=== PATIENT | male | born 1990 | race Caucasian/White ===

== ENCOUNTER 2020-02-07 22:23 | Emergency (ER) | payer OTHER ==
[~2020-02-07] VITALS: Ht 175.3 cm; Wt 68.0 kg
[2020-02-07 22:30] VITALS: BP 120/84
--- NOTE | 2020-02-07 22:30 | NUR ---
PT AAOX4. AMBULATORY. BIBS. C/O L HAND DOG BITE. DOMESTICATED DOG, DOG'S SHOT ARE UP TO DATE. NO ACUTE DISTRESS NOTED. VSS.
[2020-02-07] MEDS ORDERED: IBUPROFEN 600 MG TABLET PO ONE ×2 (22:54→23:00)
[2020-02-07] MEDS ORDERED: AMOX/CLAVULANATE 875 MG TABLET ONE (22:54)
[2020-02-07] MEDS ORDERED: TDAP [DIPH/PERTUSSIS/TET] 0.5 ML VIAL IM ONE ×2 (22:54→23:00)
[2020-02-07] MEDS ORDERED: AMOX/CLAVULANATE 875 MG TABLET PO ONE (23:00)
--- NOTE | 2020-02-07 23:01 | NUR ---
Patient discharged to home in stable condition. Written and verbal after care instructions given. Patient verbalizes understanding of instruction and RX. Wound care done. VSS. Pt ambulated with steady gait.
== END 2020-02-07 23:06 | disposition home or self-care (01) ==
LOC: ER 22:27
DX: S61.432A Puncture wound without foreign body of left hand, initial encounter (principal); W54.0XXA Bitten by dog, initial encounter; Y93.89 Activity, other specified; Y92.89 Other specified places as the place of occurrence of the external cause; Y99.8 Other external cause status
CPT/HCPCS: 90715